=== PATIENT | female | born 1960 | race Caucasian/White ===

== ENCOUNTER 2023-07-01 06:20 | Emergency (ER) | payer SELFPAY ==
[2023-07-01 06:29] VITALS: BP 114/85; PULSE 81; RESP 16; TEMP 36.6; O2SAT 98; BMI 22.3
--- NOTE | 2023-07-01 06:39 | ED.EXTPRO ---
HPI - Extremity Problem General Chief complaint: Extremity Problem,Nontraumatic Stated complaint: numbness on both feet and blisters Time Seen by Provider: 07/01/23 06:28 Source: patient Mode of arrival: Ambulatory Limitations: no limitations History of Present Illness HPI Narrative: Patient is a 62-year-old female who states that she has been walking quite a bit for the past couple days. She does not think that her feet have been wet because she has been out of the rain but does admit that her socks become very wet and she has actually had to take her socks off. She is here for evaluation of white patches and pain and blisters on both of her feet. Related Data Allergies Allergy/AdvReac Type Severity Reaction Status Date / Time No Known Drug Allergies Allergy Verified 07/01/23 06:42 Review of Systems Musculoskeletal Musculoskeletal: Reports system reviewed and no additional complaints, except as documented Integumentary/Breasts Skin/Breast: Reports system reviewed and no additional complaints, except as documented Exam Cardio Pulses: dorsalis pedis present bilaterally Skin Other: Patient has signs of prolonged exposure to wet to both of her feet. She is areas of white patches both on the medial and lateral aspect of the mid and forefoot. There are blisters noted on the plantar aspect of both her 3rd 4th and 5th toes. There was no erythema around the areas. Neuro Sensory Exam: no sensory deficits noted Extrem Other: Skin changes to bilateral feet MDM - Extremity (Nontraumatic) MDM Narrative Medical decision making narrative: Patient has findings both of her feet that are consistent with prolonged exposure to cold and wet environments. She is blisters underneath some of her toes consistent with her extended periods of walking recently. There was no erythema. No specific signs of infection. She has good dorsalis pedis pulses. Good cap refill. Had a discussion with the patient regarding her symptoms. Informed her that she needs to try to keep her feet dry an elevated as much as possible. Advised that she change her socks often. She was given a pair of socks from the emergency department. Her shoes are wet. There was no indication for admission to the hospital. Patient was given return precautions. Discharge Plan Departure Patient Disposition: Home Clinical Impression: Trench foot Instructions: Foot Care: Skin Care Activity Restrictions/Additional Instructions: The appearance of both of your feet today are consistent with someone who has had prolonged exposure to both cold and wet. It is important that you try to stay off her feet as much as possible. Keep your feet elevated. It is also important that you try to spend as much time as possible outside of either wet socks and wet shoes. If you do need to wear socks make sure that you were changing your socks often. Try to keep your feet warm as well. Return to the emergency department for new symptoms Stand Alone Forms: Patient Portal/API
--- NOTE | 2023-07-01 06:52 | PC.NURSE ---
Pt's has multiple blisters over the soles of both feet.
== END 2023-07-01 06:59 | disposition home or self-care (01) ==
PROVIDERS: Emergency Provider Emergency Medicine
DX: T69.021A Immersion foot, right foot, initial encounter (principal); T69.022A Immersion foot, left foot, initial encounter; X31.XXXA Exposure to excessive natural cold, initial encounter
CPT/HCPCS: 99281

== ENCOUNTER 2024-06-14 15:15 | Outpatient (RCR) | payer OTHER, SELFPAY ==
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
== END 2024-06-16 13:22 | disposition home or self-care (01) ==
LOC: PHYS 15:15
PROVIDERS: Family Provider Nurse Practitioner Family; PCP Nurse Practitioner Family; Referring Provider Nurse Practitioner Family; Visit Provider Nurse Practitioner Family
DX: M79.671 Pain in right foot (principal); R53.1 Weakness; R26.2 Difficulty in walking, not elsewhere classified
CPT/HCPCS: 97110; 97140; 97162; 97535

== ENCOUNTER → 2024-08-03 12:58 | Outpatient (CLI) | payer OTHER, SELFPAY ==
[2024-08-03 13:46] LABS: Influenza A - CEPHEID Flu A NEGATIVE (NEGATIVE); Influenza B - CEPHEID Flu B NEGATIVE (NEGATIVE); Respiratory Syncytial Virus Negative (Negative)
[2024-08-03 13:47] LABS: COVID-19 CEPHEID 4-PLEX PCR Negative (Negative)
== END ==
PROVIDERS: Family Provider Nurse Practitioner Family; PCP Nurse Practitioner Family; Visit Provider Nurse Practitioner Family
DX: R05.9 Cough, unspecified (principal)
CPT/HCPCS: 0241U